=== PATIENT | female | born 1965 | race African-American/Black ===

== ENCOUNTER 2018-07-08 11:10 | Emergency (ER) | payer MEDICAID ==
[~2018-07-08] VITALS: Ht 170.2 cm; Wt 75.0 kg
[2018-07-08] MEDS ORDERED: NIFEDIPINE XL 90MG TAB PO ONE (12:00)
[2018-07-08] MEDS ORDERED: CARVEDILOL 25MG TABLET PO ONE (12:00)
[2018-07-08] MEDS ORDERED: CLONIDINE 0.1MG TABLET PO ONE (12:00)
[2018-07-08] MEDS ORDERED: LOSARTAN POTASSIUM 50 MG TABLET PO SCH (12:00)
[2018-07-08] MEDS ORDERED: LEVETIRACETAM 500MG TABLET PO ONE (12:00)
[2018-07-08 16:36] VITALS: BP 160/100
== END 2018-07-08 16:50 | disposition home or self-care (01) ==
LOC: ER 11:10
DX: R51 Headache (principal); I16.0 Hypertensive urgency; I10 Essential (primary) hypertension
CPT/HCPCS: 99284

== ENCOUNTER 2018-12-22 14:42 | Emergency (ER) | payer MEDICAID ==
[~2018-12-22] VITALS: Ht 165.1 cm; Wt 82.0 kg
[2018-12-22] MEDS ORDERED: CLONIDINE 0.2MG TABLET PO ONE (17:30)
[2018-12-22 18:39] VITALS: BP 176/89
== END 2018-12-22 18:40 | disposition home or self-care (01) ==
LOC: ER 14:42
DX: I10 Essential (primary) hypertension (principal); L30.9 Dermatitis, unspecified; E11.9 Type 2 diabetes mellitus without complications; E78.00 Pure hypercholesterolemia, unspecified; G40.909 Epilepsy, unspecified, not intractable, without status epilepticus; F17.210 Nicotine dependence, cigarettes, uncomplicated; Z71.6 Tobacco abuse counseling
CPT/HCPCS: 99283; Z7610